=== PATIENT | male | born 1990 | race Caucasian/White ===

== ENCOUNTER 2016-12-16 14:22 | Emergency (ER) | payer OTHER ==
[~2016-12-16] VITALS: Ht 167.6 cm; Wt 77.1 kg
[~2016-12-16 14:22] MED LIST: AMOXIL500 MG PO; BACTRIM DS 8001 TA1 PO; CIPRO500 MG PO; FLAGYL500 MG PO; Nystatin Ointme30 GM PO; TRAMADOL HCL50 MG PO; ULTRAM50 MG PO
[2016-12-16] MEDS ORDERED: AMOXICILLIN500 M2 PO (14:50)
== END 2016-12-16 14:54 | disposition home or self-care (01) ==
LOC: ED 14:22
DX: K04.7 Periapical abscess without sinus (principal); F17.200 Nicotine dependence, unspecified, uncomplicated; F12.10 Cannabis abuse, uncomplicated

== ENCOUNTER 2017-01-21 15:39 | Emergency (ER) | payer OTHER ==
[~2017-01-21] VITALS: Ht 165.1 cm; Wt 72.6 kg
[~2017-01-21 15:39] MED LIST changes: +AMOXICILLIN500 M2 PO
[2017-01-21] MEDS ORDERED: PENICILLIN VK500 MG PO (16:45)
[2017-01-21] MEDS ORDERED: NEURONTIN300 MG PO (16:45)
== END 2017-01-21 21:37 | disposition home or self-care (01) ==
LOC: ED 15:39
DX: K04.7 Periapical abscess without sinus (principal); F12.10 Cannabis abuse, uncomplicated; F17.200 Nicotine dependence, unspecified, uncomplicated; Z98.890 Other specified postprocedural states

== ENCOUNTER → 2021-06-03 | Outpatient (CLI) | payer OTHER ==
[~2021-06-03] MED LIST changes: +NEURONTIN300 MG PO; +PENICILLIN VK500 MG PO
== END | disposition home or self-care (01) ==
LOC: COVID19 17:24
PROVIDERS: ATTEND Student in an Organized Health Care Education/Training Program
DX: U07.1 COVID-19 (principal)

== ENCOUNTER 2021-12-10 16:40 | Emergency (ER) | payer SELFPAY ==
[~2021-12-10] VITALS: Ht 175.2 cm; Wt 81.6 kg
[2021-12-10] MEDS ORDERED: CARAFATE1 G1 PO (17:30)
[2021-12-10 18:32] LABS: BASO % 0.2 % (0.0-1.0); EOS % 0.1 % (1.0-4.0); HEMATOCRIT 47.5 % (42.0-52.0); LYMPH # 1.1 10*3/uL (1.3-4.4); LYMPH % 6.5 % (27.0-41.0); MEAN CELL VOLUME 92.2 fl (80.0-94.0); MEAN CORPUSCULAR HGB 31.1 pg (27.0-31.0); MEAN CORPUSCULAR HGB CONC 33.7 g/dl (33.0-37.0); MEAN PLATELET VOLUME 9.9 fl (9.6-12.3); MONO # 0.6 10*3/uL (0.1-1.0); MONO % 3.3 % (3.0-9.0); NEUT # 15.3 10*3/uL (2.3-7.9); NEUT % 89.6 % (47.0-73.0); PLATELET COUNT AUTOMATED 290 10*3/uL (130-400); RED BLOOD COUNT 5.15 10*6/uL (4.50-5.90); RED CELL DISTRI WIDTH 11.9 % (0-14.5); WHITE BLOOD COUNT 17.1 10*3/uL (4.8-10.8)
[2021-12-10 18:51] LABS: ALKALINE PHOSPHATASE 66 U/L (45-117); BUN 8 mg/dl (7-24); CHLORIDE 108 mmol/L (98-107); CREATININE 1.24 mg/dL (0.70-1.30); LIPASE 97 U/L (73-393); POTASSIUM 3.6 mmol/L (3.5-5.1); SGOT/AST 27 IU/L (3-35); SGPT/ALT 28 U/L (12-78); SODIUM 139 mmol/L (136-145)
[2021-12-10] MEDS ORDERED: ZOFRAN4 MG PO (21:17)
[2021-12-10] MEDS ORDERED: PANTOPRAZOLE SO40 MG PO (21:17)
== END 2021-12-10 21:40 | disposition left against medical advice (07) ==
LOC: ED 16:40
PROVIDERS: Physician Assistant
DX: R10.13 Epigastric pain (principal); R11.2 Nausea with vomiting, unspecified; F17.200 Nicotine dependence, unspecified, uncomplicated; F12.90 Cannabis use, unspecified, uncomplicated; Z98.890 Other specified postprocedural states